=== PATIENT | female | born 2000 | race Caucasian/White ===

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

== ENCOUNTER 2019-11-01 22:35 | Emergency (ER) | payer SELFPAY ==
[~2019-11-01] VITALS: Ht 152 cm; Wt 86.4 kg
[2019-11-01] MEDS ORDERED: RX-TRAMADOL 50 MG (ULTRAM) TAB PPK#4 PO STA (23:40)
[2019-11-01] MEDS ORDERED: AMOX-358 PO (23:43)
[2019-11-01] MEDS ORDERED: METH4TAB PO (23:43)
[2019-11-01] MEDS ORDERED: TRIA10.8 NSEACH (23:43)
[2019-11-01] MEDS ORDERED: LORA1TAB59 PO (23:43)
[2019-11-01] MEDS ORDERED: TRAM-42 PO (23:43)
--- NOTE | 2019-11-01 23:44 | ED EENT ---
History of Present Illness General Chief Complaint: Ear Problems Stated Complaint: CONGESTED,EAR PAIN Nursing Triage Note: Pt ambulates to [facility] with c/o left ear pain/"throbbing" x 4 hrs. Pt states she's had a Hx of ear infections and had tubes put in as a child. Pt also reports having sinus congestion/cough since 10/27. Pt states she took advil and tylenol scow captain without any relief. Pt has fever of 100.7F on arrival, right ear is red upon examination. 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, BUT NO SIGNIFICANT PROBLEMS SINCE SHE HAS GOTTEN OLDER BOYFRIEND HAS MILD COLD SYMPTOMS PCP: NONE--STATES SHE "JUST MOVED HERE A YEAR AGO" AND HAS NOT ESTABLISHED WITH ANYONE Allergies and Home Medications Allergies Coded Allergies: No Known Drug Allergies (Unverified , 11/01/19) Home Medications Amoxicillin/Potassium Clav 1 Each Tablet, 1 EACH PO BID Prescribed by: LOUISE LIND on 11/01/192342 Loratadine/Pseudoephedrine 1 Each Tab.er.12h, 1 EACH PO BID Prescribed by: LOUISE LIND on 11/01/192342 Methylprednisolone 4 Mg Tab.ds.pk, 4 MG PO UD Prescribed by: LOUISE LIND on 11/01/192342 Tramadol HCl 50 Mg Tablet, 50 MG PO Q4H PRN for PAIN-MODERATE Prescribed by: LOUISE LIND on 11/01/192342 Triamcinolone Acetonide 10.8 Ml [place], 2 SPRAY NSEACH BID Prescribed by: LOUISE LIND on 11/01/192342 Patient Home Medication List Home Medication List Reviewed: Yes Review of Systems Review of Systems Constitutional: see HPI, fever Eyes: No Symptoms Reported Ears: See HPI, Pain; Denies Bloody Discharge, Denies Clear Discharge, Denies Purulent Discharge Nose: see HPI, congestion; denies pain Mouth: no symptoms reported Throat: no symptoms reported Respiratory: see HPI, cough; No short of breath, No wheezing Cardiovascular: no symptoms reported Gastrointestinal: no symptoms reported LMP: Sep 17, 2019 (NO CONTROL) Musculoskeletal: no symptoms reported Skin: no symptoms reported Neurological: No Symptoms Reported; Denies Headache Hematologic/Lymphatic: No Symptoms Reported Immunological/Allergic: no symptoms reported Past Bpecbee-Fehdge-Dyfyji Hx Past Med/Social Hx: Reviewed and Corrections made Patient Social History Alcohol Use: Denies Use Recreational Drug Use: No Smoking Status: Never a Smoker 2nd Hand Smoke Exposure: No Recent Foreign Travel: No Contact w/Someone Who Travel: No Recent Infectious Disease Expo: No Recent Hopitalizations: No Physical Abuse: No Sexual Abuse: No Mistreated: No Fear: No Seasonal Allergies Seasonal Allergies: No Past Medical History 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 oz. kg; 37.00 BMI Method: General Appearance: WD/WN, no apparent distress, other (SMILING, TEXTING/PLAYING ON PHONE THROUGHOUT ER STAY) Eyes: bilateral eye normal inspection, bilateral eye PERRL, bilateral eye EOMI Ears: bilateral ear other (LEFT TM MILD TO MODERATELY INFLAMED, WITH SMALL EFFUSION. RIGHT TM MARKEDLY INFLAMED WITH EFFUSION AND LOSS OF LANDMARKS. BOTH TM'S SCLEROTIC AT SITE OF PRIOR BMT'S) Nose: No sinus tenderness; other (CONGESTION AND CLEAR RHINORRHEA) Mouth/Throat: normal mouth inspection (CLEAR POST NASAL DRAINAGE. ) Neck: non-tender, full range of motion, supple, normal inspection; No lymphadenopathy (R), No lymphadenopathy (L) Cardiovascular: regular rate, rhythm, no murmur Respiratory: normal breath sounds Gastrointestinal: non tender, soft Neurologic/Psychiatric: refractory specialist II-XII nml as tested, no motor/sensory deficits, alert, normal mood/affect, oriented x 3 Skin: normal color, warm/dry Progress/Results/Core Measures Results/Orders Micro Results Microbiology 11/01/19 Influenza Types A,B Antigen (FRED) - Final, Complete My Orders Orders - LOUISE LIND DO Influenza A And B Antigens (11/01/19 23:00) Urine Bedside (11/01/19 23:33) Rx-Tramadol Hcl (Rx-Ultram) (11/01/19 23:40) Amoxicillin/Clavulanate Tablet (Augmenti (11/01/19 23:45) Vital Signs/I&O 11/01/19 11/01/19 22:54 23:51 Temp 38.2 38.2 Pulse 95 95 Resp 20 20 B/P (MAP) 141/89 (106) 138/84 (106) Pulse Ox 99 99 O2 Delivery Room Air Blood Pressure Mean: 106 Departure Impression Primary Impression: Bilateral otitis media with effusion Additional Impression: Upper respiratory infection Disposition: HOME, SELF-CARE Condition: Stable Departure-Patient Inst. Referrals: NO,LOCAL PHYSICIAN (PCP/Family) Primary Care Physician Patient Instructions: Ear Infections (Otitis Media) (DC), Bacterial Upper Respiratory Infection, Adult, Serous Otitis Media (DC) Add. Discharge Instructions: TYLENOL 1 GRAM 4 TIMES A DAY FOR PAIN OR FEVER LOTS OF CLEAR LIQUIDS FOLLOW UP WITH OF CHOICE IF YOU HAVE DRAINAGE OR INCREASED PAIN FROM EAR, OR IF YOU HAVE FEVER OVER 101 All discharge instructions reviewed with patient and/or family. Voiced understanding. Scripts Tramadol HCl (Ultram) 50 Mg Tablet 50 MG PO Q4H PRN for PAIN-MODERATE for 3 Days, #12 TAB Prov: LOUISE LIND DO 11/01/19 Methylprednisolone (Medrol) 4 Mg Tab.ds.pk 4 MG PO UD, #1 PKG Prov: LOUISE LIND DO 11/01/19 Triamcinolone Acetonide (Nasacort) 10.8 Ml [place] 2 SPRAY NSEACH BID, #1 SPRAY Prov: LOUISE LIND DO 11/01/19 Loratadine/Pseudoephedrine (Claritin-D 12 Hour Tablet) 1 Each Tab.er.12h 1 EACH PO BID, #20 TAB Prov: LOUISE LIND DO 11/01/19 Amoxicillin/Potassium Clav (Augmentin 875-125 Tablet) 1 Each Tablet 1 EACH PO BID for INFECTION, #20 TAB Prov: LOUISE LIND DO 11/01/19 Work/School Note: Local Medical Staff Listing LOUISE LIND DO Nov 01, 2019 23:44
[2019-11-01] MEDS ORDERED: AUGMENTIN 875 MG TAB (AMOXICILLIN/CLAVULANATE) PO SCH (23:45)
[2019-11-01 23:51] VITALS: BP 138/84
== END 2019-11-01 23:51 | disposition home or self-care (01) ==
LOC: EDUNIT# 22:35 → ER 22:36
DX: H65.93 Unspecified nonsuppurative otitis media, bilateral (principal); J06.9 Acute upper respiratory infection, unspecified; Z96.22 Myringotomy tube(s) status
CPT/HCPCS: 84703; 87804